=== PATIENT | female | born 1995 | race Caucasian/White ===

== ENCOUNTER 2023-07-18 15:47 | Inpatient (IN) ==
[2023-07-18 17:36] LABS: Basophils # (auto) 0.04 K/uL (0.00-0.20); Basophils % (auto) 0.3 %; Eosinophils # (auto) 0.04 K/uL (0.00-0.50); Eosinophils % (auto) 0.3 %; Hematocrit (blood only) 38.2 % (37.0-47.0); Hemoglobin 13.1 g/dl (12.0-16.0); Immature Granulocytes # (auto) 0.09 K/uL (0.01-0.20); Immature Granulocytes % (auto) 0.8 %; Lymphocytes # (auto) 1.95 K/uL (1.20-3.40); Lymphocytes % (auto) 16.4 %; Mean Corpuscular Hemoglobin 33.6 pg (25.0-34.0); Mean Corpuscular Hgb Conc 34.3 g/dL (32.0-36.0); Mean Corpuscular Volume 97.9 fL (80.0-100.0); Mean Platelet Volume 12.4 fL (9.4-12.4); Monocytes # (auto) 0.75 K/uL (0.11-0.59); Monocytes % (auto) 6.3 %; Neutrophils # (auto) 9.04 K/uL (1.40-6.50); Neutrophils % (auto) 75.9 %; Platelet Count 240 K/uL (130-400); RDW Coefficient of Variation 12.6 % (11.5-14.5); RDW Standard Deviation 45.1 fL (36.4-46.3); White Blood Count 11.91 K/ul (4.8-10.8)
[2023-07-18 17:52] LABS: Albumin Globulin Ratio 1.1 (0.9-2); Albumin Level 3.3 gm/dl (3.4-5.0); BUN Creatinine Ratio 16.4 (10-20); Bilirubin Direct 0.2 mg/dl (0-0.2); Bilirubin,Total 0.4 mg/dl (0.2-1.0); Creatinine Clr Calc Pharmacy 137.1 ml/min; Est GFR (Non-African American) 122.5 ml/min; Globulin 3.1 gm/dl (2.5-4.0); Total Protein 6.4 gm/dl (6.0-8.3)
[2023-07-18 18:08] LABS: Creatinine Urine Random 42.1 mg/dl; Protein Creatinine Ratio Urine 0.4 (0-0.2); Total Protein Urine Random 15.4 mg/dl (0-11.9)
[2023-07-18] MEDS ORDERED: LIDOCAINE 1% LOCAL 20 ML VIAL INFIL PRN (18:25)
[2023-07-18] MEDS ORDERED: MAG SULFATE 4GM BOLUS FROM BAG IV ONE (18:25)
[2023-07-18] MEDS ORDERED: OXYTOCIN 30 UNITS/NSS 30 UNITS/500 ML BAG IV PRN ×2 (18:25)
--- NOTE | 2023-07-18 18:39 | History & Physical Report ---
Date of Service July 18, 2023 Assessment & Plan (1) 38 weeks gestation of : (2) HELLP syndrome: Plan Discussed pt her persistent elevated bps and protein and elevated lfts with point to dx of HELLP. Will admit and plan induction. Hawley placed and will start pitocin. Has not eaten since noon so will allow light meal before starting pitocin/magnesium. SE and risks of magnesium reviewed, needs to have hawley catheter reviewed. Rationale for use reviewed. Will plan serial labs for now. History of Present Illness Chief Complaint: sent from office with elevated bp Primary Care Provider: Filipe Montenegro 28yo at 38+wks ega presents to L&D with elevated bp for further evaluation. Patient called office today after checking her own labs yesterday at [facility] [employer] where she works (no medical order, they were testing a machine), and noting elevated LFTs. She was advised to come to office. BP there elevated >140/90 and advised to come to L&D for more monitoring. No spencer or visual change. No ruq pain or edema. +FM. No rom, vb. +FM. PNC otherwise uncomplicated except for marginal cord insertion and PNL rh pos, ri, gbs neg. While here thus far multiple bps with mild range elevation and then labs here returned with elevated prot/creat ratio and elevated LFTs. Plts were normal and creat 0.6. OBH: g1 GYNH: nl paps, no stds Allergies Allergy/AdvReac Type Severity Reaction Status Date / Time Penicillins Allergy Rash Verified 07/18/23 16:16 Home Medications Medication Instructions Recorded Confirmed Type albuterol sulfate [ProAir HFA] 2 puff inhalation Q6 PRN shortness 09/20/22 07/18/23 History of breath docosahexaenoic acid [ DHA] 1 tab PO DAILY 09/20/22 07/18/23 History famotidine 10 mg tablet (Pepcid AC) 10 mg PO HS 07/18/23 07/18/23 History metoclopramide HCl 5 mg tablet 5 mg PO Q6H PRN nausea 07/18/23 07/18/23 History (Reglan) Patient History Medical History (Updated 07/18/23 @ 18:36 by Amrita Shoemaker MD, FACOG) Varicella vaccination Asthma, exercise induced Surgical History Status post surgery thumb growth plate as result of injury Family History (Updated 12/19/22 @ 15:10 by Marycruz Childs) Mother Breast cancer, Onset Age: 40 Mother at age 41 Grandfather (Maternal) Prostate cancer Grandmother (Paternal) Thyroid disease Denies family history of Ovarian cancer Myocardial infarction Colorectal cancer Social History (Updated 12/19/22 @ 15:12 by Marycruz Childs) Smoking Status: Never smoker Second Hand Exposure: No; Do You Dip or Chew Tobacco: No; Hx Alcohol Use: No Hx Substance Use: No Preferred Language: Italian Channel Turner Required: No Beliefs That Will Affect Care: None marital status: marital status details: Lazaro Wright (30) [phone] Current Living Situation: Spouse Current Living Situation Comment: lives with spouse, dog, cats-spouse changing litter current occupational status: employed current occupation: [employer] How many Children do You have: 0 Feels Safe at Home: Yes Safety Concerns: Feels Safe At This Time Review of Systems as per Subjective / HPI Physical Exam Constitutional: WD/WN, vitals as above Respiratory: normal respiratory effort, lungs clear to auscultation Cardiovascular: Rate/Rhythm: regular rate and regular rhythm Gastrointestinal (Abdomen): soft gravid nt efw 7-8# Musculoskeletal: no edema nontender calves Neurologic: grossly normal DTRs +2 no clonus Psychiatric: A+Ox3, euthymic affect Genitourinary: Manual OB Exam: + cervical dilation (1), + cervical effacement 50% and + station -2 OB Exam Monitor Tracing: + external FHT monitor used, + external uterine monitor used, + category I and + normal FHT variability PROCEDURE: sse cx visualized, grasped on ant lip with ring forcep, hawley through os and balloon inflated with 40cc sterile water. Spec removed, hawley taped to leg. pt nish well. Results & Data Vital Signs (Past 12 Hours) Vital Signs Temp Pulse Resp BP 07/18/23 17:35 100 H 144/86 H 07/18/23 17:21 106 H 142/89 H 07/18/23 16:43 109 H 150/88 H 07/18/23 16:30 107 H 144/88 H 07/18/23 16:29 112 H 140/92 07/18/23 16:14 98.4 F 16 07/18/23 16:02 108 H 143/91 H Coding Level of Care Code None Diagnoses 38 weeks gestation of Z3A.38 HELLP syndrome O14.20
[2023-07-18] MEDS: LACTATED RINGER'S 1,000 ML IV PRN (19:47)
[2023-07-18] MEDS: MAGNESIUM SULFATE / WTR 40 GM/1,000 ML BAG IV SCH (19:51)
[2023-07-18 23:57] LABS: Hematocrit (blood only) 36.7 % (37.0-47.0); Hemoglobin 12.8 g/dl (12.0-16.0); Mean Corpuscular Hemoglobin 33.9 pg (25.0-34.0); Mean Corpuscular Hgb Conc 34.9 g/dL (32.0-36.0); Mean Corpuscular Volume 97.1 fL (80.0-100.0); Mean Platelet Volume 12.3 fL (9.4-12.4); Platelet Count 248 K/uL (130-400); RDW Coefficient of Variation 12.6 % (11.5-14.5); RDW Standard Deviation 44.1 fL (36.4-46.3); Red Blood Count 3.78 M/uL (4.20-5.40); White Blood Count 15.37 K/ul (4.8-10.8)
[2023-07-19] MEDS ORDERED: ACETAMINOPHEN 325 MG TAB PO ONE (00:01)
[2023-07-19 00:03] LABS: Albumin Globulin Ratio 1.1 (0.9-2); Albumin Level 3.2 gm/dl (3.4-5.0); BUN Creatinine Ratio 13.8 (10-20); Bilirubin Direct 0.2 mg/dl (0-0.2); Bilirubin,Total 0.5 mg/dl (0.2-1.0); Calcium 8.2 mg/dl (8.6-10.3); Creatinine Clr Calc Pharmacy 144.2 ml/min; Est GFR (African American) 144.4 ml/min; Est GFR (Non-African American) 124.6 ml/min; Total Protein 6.2 gm/dl (6.0-8.3)
[2023-07-19] MEDS ORDERED: ACETAMINOPHEN 325 MG TAB ONE (00:17)
--- NOTE | 2023-07-19 00:18 | Labor Progress Brief Note ---
Date of Service July 19, 2023 Subjective comfortable pit at 11, not really feeling ctx. has mild spencer. hawley balloon fell out. Assessment & Plan (1) 38 weeks gestation of : (2) HELLP syndrome: (3) Encounter for induction of labor: Plan will see how arom helps labor pattern. lfts noted. will check full labs again about 5am. c/w pit. fhts categ 1. tylenol for spencer, bp ok. good urine out. Admission and Anticipated Discharge Date Admission Date: July 18, 2023 Physical Exam Constitutional: WD/WN, vitals as above Genitourinary: Manual OB Exam: + cervical dilation 5 cm, + cervical effacement 60%, + station -2 and + amniotic fluid (arom) clear OB Exam Monitor Tracing: + external FHT monitor used, + external uterine monitor used (q2-3), + category I and + normal FHT variability Results & Data Vital Signs (Past 12 Hours) Vital Signs Temp Pulse Resp BP 07/18/23 23:59 117 H 137/89 07/18/23 23:30 18 07/18/23 23:29 118 H 153/82 H 07/18/23 22:59 115 H 134/74 07/18/23 22:30 18 07/18/23 22:29 111 H 144/88 H 07/18/23 21:58 123 H 145/86 H 07/18/23 21:30 18 07/18/23 20:58 114 H 149/90 H 07/18/23 20:49 118 H 157/90 H 07/18/23 20:35 18 07/18/23 20:30 113 H 159/82 H 07/18/23 20:21 114 H 148/77 H 07/18/23 20:20 18 07/18/23 20:11 121 H 145/82 H 07/18/23 20:05 18 07/18/23 19:50 98.2 F 18 07/18/23 19:15 110 H 154/91 H 07/18/23 17:35 100 H 144/86 H 07/18/23 17:21 106 H 142/89 H 07/18/23 16:43 109 H 150/88 H 07/18/23 16:30 107 H 144/88 H 07/18/23 16:29 112 H 140/92 07/18/23 16:14 98.4 F 16 07/18/23 16:02 108 H 143/91 H Coding Level of Care Code None Diagnoses 38 weeks gestation of Z3A.38 HELLP syndrome O14.20 Encounter for induction of labor Z34.90
[2023-07-19] MEDS ORDERED: FAMOTIDINE 10 MG TABLET PO STA (01:32)
[2023-07-19] MEDS ORDERED: ePHEDrine sulfate 50 MG/ML AMP ONE (03:59)
[2023-07-19] MEDS ORDERED: fentaNYL citrate PF 100 MCG/2 ML VIAL ONE (03:59)
[2023-07-19] MEDS ORDERED: fentANYL 2 MCG/ML BUPIVacaine 0.125%-NSS 100ML BAG ONE (04:00)
[2023-07-19] MEDS ORDERED: LIDOCAINE 2%/EPINEPHRINE 1:200,000 20 ML PF ONE (04:00)
[2023-07-19] MEDS ORDERED: SODIUM CHLORIDE 0.9% PF INJ 10 ML VIAL ONE (04:00)
[2023-07-19] MEDS ORDERED: BUPIVACAINE 0.25% PF 30 ML VIAL ONE (04:00)
--- NOTE | 2023-07-19 04:06 | Anesthesiology Consultation ---
Date of Service July 19, 2023 Assessment & Plan Chart Review Chart Review: Patient NOT seen in Pre Admission Testing and Acceptable Risk for Labor Epidural Consults Requested none ASA ASA3 Proposed Anesthesia Anesthesia Type: Labor Epidural Risk / Benefits Reviewed With: PT / POA / Parent / Guardian, Accepts Plan and Informed Consent Obtained History Height/Weight Height: 5 ft 2 in Weight: 84.368 kg Allergies Allergy/AdvReac Type Severity Reaction Status Date / Time Penicillins Allergy Rash Verified 07/18/23 16:16 Medications Home Medications Medication Instructions Recorded Confirmed Last Taken albuterol sulfate [ProAir HFA] 2 puff inhalation Q6 PRN shortness 09/20/22 07/18/23 Unknown of breath docosahexaenoic acid [ DHA] 1 tab PO DAILY 09/20/22 07/18/23 07/18/23 famotidine 10 mg tablet (Pepcid AC) 10 mg PO HS 07/18/23 07/18/23 07/17/23 metoclopramide HCl 5 mg tablet 5 mg PO Q6H PRN nausea 07/18/23 07/18/23 Unknown (Reglan) Active Medications Generic Name Dose Route Start Last Admin Trade Name Freq PRN Reason Stop Dose Admin Lactated Ringer's 1,000 mls @ 125 mls/hr 07/18/23 18:25 07/18/23 19:47 Lr IV 07/20/23 18:24 75 mls/hr .Q8H PRN Administration L&D Protocol Protocol Oxytocin 30 units in 500 mls @ 17 mls/hr 07/18/23 18:25 07/19/23 02:30 Pitocin 30 Units/Nss IV 07/20/23 18:24 1.14 units/hr .Q24H PRN 19 mls/hr Labor Induction/Augmentation Titration Protocol 1.02 UNITS/HR Magnesium Sulfate 40 gm in 1,000 mls @ 50 mls/hr 07/18/23 18:30 07/18/23 23:33 Magnesium Sulfate / Wtr IV 08/17/23 18:29 50 mls/hr .Q20H [facility] Infusion NPO Date Last Intake of Fluids: 07/19/23 Time Last Intake of Fluids: 03:00 Date Last Intake of Solids: 07/18/23 Time Last Intake of Solids: 19:00 Past Medical History Medical History Varicella vaccination Asthma, exercise induced Exercise / Class Metabolic Activity 1 > 8 Run/Swim/Ski/Tennis Past Family History Family History Mother Breast cancer, Onset Age: 40 Mother at age 41 Grandfather (Maternal) Prostate cancer Grandmother (Paternal) Thyroid disease Denies family history of Ovarian cancer Myocardial infarction Colorectal cancer Past Surgical History Surgical History Status post surgery thumb growth plate as result of injury Past Anesthesia History No Hx of Anesthesia Complications and No Family Hx of Anesthesia Complications History of PONV No Hx of Motion Sickness and History of PONV Social History Smoking Status: Never smoker Do You Dip or Chew Tobacco: No Hx Alcohol Use: No Hx Substance Use: No substance use type: does not use Review of Systems ROS Unobtainable: All systems reviewed & are unremarkable except as noted in HPI & below Physical Exam Vital Signs Last Vital Signs Temp 36.6 C 07/19/23 01:31 Pulse 118 H 07/19/23 03:38 Resp 18 07/19/23 03:30 BP 145/83 H 07/19/23 03:38 ENMT Mouth: no TMJ abnormality Thyromental Distance: > or= 3.5 Finger Breadths Mallampati Class: II Neck normal visual inspection and trachea midline; neck extension not limited Respiratory normal respiratory effort Auscultation: lungs clear to auscultation bilaterally Cardiovascular Rate/Rhythm: regular rate and regular rhythm Heart Sounds: no murmur Musculoskeletal Spine: normal cervical ROM Extremities: full ROM of extremities Neurologic moves all extremities Psychiatric Orientation: alert and oriented x 3 Testing Laboratory Results 07/18/23 23:31 07/18/23 23:31
[2023-07-19] MEDS: LACTATED RINGER'S 1,000 ML IV PRN ×2 (04:18→14:42)
[2023-07-19] MEDS ORDERED: LIDOCAINE 2% MPF LOCAL 5 ML VIAL EPI PRN (04:46)
[2023-07-19] MEDS ORDERED: NALBUPHINE HCL 5 MG in SYRINGE 0 ML IV PRN (04:46)
[2023-07-19] MEDS ORDERED: ROPIVACAINE 0.5% PF 5 MG/ML 20 ML VIAL EPI PRN (04:46)
[2023-07-19] MEDS ORDERED: NALOXONE HCL 0.4 MG/1 ML VIAL/CARP IV PRN (04:46)
[2023-07-19] MEDS ORDERED: NALOXONE HCL 1 MG in SODIUM CHLORIDE 0.9% 1,000 ML IV PRN (04:46)
[2023-07-19] MEDS ORDERED: LIDOCAINE 2%/EPINEPHRINE 1:200,000 20 ML PF EPI STA (04:46)
[2023-07-19] MEDS ORDERED: fentaNYL citrate PF 100 MCG/2 ML VIAL EPI STA (04:46)
[2023-07-19] MEDS ORDERED: ePHEDrine sulfate 50 MG/ML AMP IV PRN (04:46)
[2023-07-19] MEDS ORDERED: SODIUM CHLORIDE 0.9% PF INJ 10 ML VIAL EPI STA (04:46)
[2023-07-19] MEDS ORDERED: diphenhydrAMINE 50 MG/ML VIAL IV PRN (04:46)
[2023-07-19] MEDS ORDERED: BUPIVACAINE 0.25% PF 30 ML VIAL EPI STA (04:46)
[2023-07-19 06:20] LABS: Hematocrit (blood only) 37.1 % (37.0-47.0); Hemoglobin 12.5 g/dl (12.0-16.0); Mean Corpuscular Hemoglobin 33.3 pg (25.0-34.0); Mean Corpuscular Hgb Conc 33.7 g/dL (32.0-36.0); Mean Corpuscular Volume 98.9 fL (80.0-100.0); Mean Platelet Volume 12.5 fL (9.4-12.4); Platelet Count 237 K/uL (130-400); RDW Coefficient of Variation 12.5 % (11.5-14.5); RDW Standard Deviation 45.1 fL (36.4-46.3); Red Blood Count 3.75 M/uL (4.20-5.40); White Blood Count 18.52 K/ul (4.8-10.8)
[2023-07-19 06:38] LABS: Albumin Globulin Ratio 1.2 (0.9-2); Albumin Level 3.3 gm/dl (3.4-5.0); BUN Creatinine Ratio 10.5 (10-20); Bilirubin Direct 0.2 mg/dl (0-0.2); Bilirubin,Total 0.6 mg/dl (0.2-1.0); Calcium 7.8 mg/dl (8.6-10.3); Creatinine Clr Calc Pharmacy 146.7 ml/min; Est GFR (African American) 145.2 ml/min; Est GFR (Non-African American) 125.3 ml/min; Globulin 2.8 gm/dl (2.5-4.0); Total Protein 6.1 gm/dl (6.0-8.3)
[2023-07-19] MEDS ORDERED: ONDANSETRON INJ 2 MG/ML 2 ML VIAL ONE (07:05)
[2023-07-19] MEDS ORDERED: ONDANSETRON INJ 2 MG/ML 2 ML VIAL IV PRN (08:23)
--- NOTE | 2023-07-19 09:33 | Anesthesia Procedure Note ---
Date of Service July 19, 2023 Anesthesia Epidural Re-Dose Vital Signs Temp Pulse Resp BP Pulse Ox 98.2 F 109 H 20 175/83 H 97 07/19/23 07:15 07/19/23 09:27 07/19/23 07:15 07/19/23 09:26 07/19/23 09:27 Notes Pain Intensity: 0 Dilatation (cm): 8.0 Effacement (%): 100 Called by nursing to evaluate epidural as the patient is having increased pain. The epidural was re-dosed with the following medications (all medications via epidural route) after negative aspiration of the epidural catheter for CSF/HEME. 0.125% Bupivacaine (8ml) with 100 mcg Fentanyl After Epidural Re-Dose Mental Status: alert / awake / arousable Pain: improving with treatment Airway Patency, RR, SpO2: stable & adequate BP & HR: stable & adequate
[2023-07-19] MEDS: BUPIVACAINE 0.25% PF 30 ML VIAL EPI PRN ×2 (09:37→12:14)
[2023-07-19] MEDS: fentaNYL citrate PF 100 MCG/2 ML VIAL EPI PRN ×2 (09:38→12:14)
[2023-07-19] MEDS: SODIUM CHLORIDE 0.9% PF INJ 10 ML VIAL EPI PRN ×2 (09:38→12:14)
[2023-07-19] MEDS: fentANYL 2 MCG/ML BUPIVacaine 0.125%-NSS 100ML BAG EPI PRN ×2 (11:23→15:53)
[2023-07-19] MEDS ORDERED: NURSING L&D Epidural Breakthrough Pain Update ONE (11:25)
[2023-07-19 11:32] LABS: Hematocrit (blood only) 37.7 % (37.0-47.0); Mean Corpuscular Hemoglobin 33.9 pg (25.0-34.0); Mean Corpuscular Hgb Conc 34.5 g/dL (32.0-36.0); Mean Corpuscular Volume 98.4 fL (80.0-100.0); Mean Platelet Volume 12.2 fL (9.4-12.4); Platelet Count 239 K/uL (130-400); RDW Coefficient of Variation 12.9 % (11.5-14.5); Red Blood Count 3.83 M/uL (4.20-5.40); White Blood Count 19.63 K/ul (4.8-10.8)
[2023-07-19 11:47] LABS: Albumin Globulin Ratio 1.1 (0.9-2); Albumin Level 3.2 gm/dl (3.4-5.0); Bilirubin,Total 0.7 mg/dl (0.2-1.0); Calcium 7.6 mg/dl (8.6-10.3); Creatinine Clr Calc Pharmacy 139.4 ml/min; Est GFR (African American) 142.8 ml/min; Est GFR (Non-African American) 123.2 ml/min; Globulin 2.9 gm/dl (2.5-4.0); Potassium 3.9 mmol/L (3.5-5.1); Total Protein 6.1 gm/dl (6.0-8.3)
--- NOTE | 2023-07-19 12:22 | Anesthesia Procedure Note ---
Date of Service July 19, 2023 Anesthesia Epidural Re-Dose Vital Signs Temp Pulse Resp BP Pulse Ox 98.1 F 102 H 20 151/99 H 94 07/19/23 09:30 07/19/23 12:17 07/19/23 09:30 07/19/23 12:13 07/19/23 12:17 Notes Pain Intensity: 4 Dilatation (cm): 9.5 Effacement (%): 100 Called by nursing to evaluate epidural as the patient is having increased pain. The epidural was re-dosed with the following medications (all medications via epidural route) after negative aspiration of the epidural catheter for CSF/HEME. 0.125% Bupivacaine (8ml) with 100 mcg Fentanyl After Epidural Re-Dose Mental Status: alert / awake / arousable Pain: improving with treatment Airway Patency, RR, SpO2: stable & adequate BP & HR: stable & adequate
[2023-07-19] MEDS: MAGNESIUM SULFATE / WTR 40 GM/1,000 ML BAG IV SCH ×2 (12:45→19:29)
[2023-07-19] MEDS ORDERED: FAMOTIDINE 10 MG in SYRINGE 3 ML IV ONE (15:45)
[2023-07-19] MEDS ORDERED: DIPHTHERIA/TETANUS/PERTUSSIS Vaccine (Tdap, Age 7+yrs) 0.5mL SYR/VL IM ONE (17:12)
[2023-07-19] MEDS ORDERED: OXYTOCIN 30 UNITS/NSS 30 UNITS/500 ML BAG IV PRN (17:12)
[2023-07-19] MEDS ORDERED: ACETAMINOPHEN 325 MG TAB PO PRN (17:12)
[2023-07-19] MEDS ORDERED: bisacodyL 10 MG SUPP PR PRN (17:12)
[2023-07-19] MEDS ORDERED: HYDROCORTISONE ACETATE 25 MG SUPP PR PRN (17:12)
[2023-07-19] MEDS ORDERED: BENZOCAINE 20% SPRY 85 APPLN/85 GM CAN EXT PRN (17:12)
--- NOTE | 2023-07-19 17:16 | Delivery Summary ---
Vaginal Delivery Summary Date of Service July 19, 2023 Vaginal Delivery Summary [facility] PREOPERATIVE DIAGNOSIS: 1. Single intrauterine at 38 3/7 2. HELLP syndrome 3. Marginal cord insertion POSTOPERATIVE DIAGNOSIS: 1. Single intrauterine at 38 3/7 2. HELLP syndrome 3. Marginal cord insertion 4. Delivered PROCEDURE: 1. Normal spontaneous vaginal delivery. SURGEON: Maddie Escalona MD ANESTHESIA: Epidural. ESTIMATED BLOOD LOSS: 300 mL FLUIDS: Continuous LR. URINE OUTPUT: None. COMPLICATIONS: None. CONDITION: Stable. INDICATIONS: 28 yo G1 contacted office due to findings of elevated liver enzymes on bloodwork that was done for machine testing. She was brought to the office where bp check was performed and slightly elevated so sent to L&D for further monitoring. BPs were persistently elevated and labs suggestive of HELLP so recommended for induction. Magnesium was started and serial labs obtained. Induction was begun with hawley balloon and pit. Following hawley expulsion, pit was titrated up and she underwent arom. She continued to progress to complete and desired to push. FINDINGS: A viable female infant, weight pending with Apgars of 3 and 9 at 1 and 5 minutes respectively. SPECIMEN: Cord blood, cord gases OPERATIVE REPORT: The patient progressed to 10 cm, 100% effaced and +2 station, pushed over intact perineum with anesthesia to deliver a viable female infant, weight and Apgars as above. Head of delivered in LELIA position. No nuchal cord was present. body was noted to be transverse so posterior shoulder rotated and then body and shoulders were delivered without difficulty. was delivered to maternal abdomen and nursing staff. Delayed cord clamping deferred due to not being immediately vigorous. Cord was clamped and cut and baby taken to nursery staff. Cord segment for gases and blood was obtained. Placenta delivered spontaneously intact. IV oxytocin and fundal massage were given for excellent hemostasis. Vagina, cervix, perineum, and placenta were inspected. A vaginal laceration was noted and repaired using 3-0 vicryl. There was excellent hemostasis. Sponge and needle counts correct x2. No sponges were left behind. Mother and stable in immediate period. [facility] [place] [facility] Vaginal Delivery Charge Vaginal Delivery Codes: 52128 global code for the antepartum, delivery, and post- Delivery Type Details: [facility]
[2023-07-19 17:20] LABS: Base Excess Cord Arterial Bld -3.7 mEq/L (-9-1.8); CO2 Cord Arterial Blood 45 mmHg (39.1-73.5); HCO3 Cord Arterial Blood 23 mmol/L (19.7-28.5); PO2 Cord Arterial Blood < 20 mmHg (4.1-31.7); pH Cord Arterial Blood 7.31 (7.1-7.38)
--- NOTE | 2023-07-19 18:02 | Anesthesia Procedure Note ---
Date of Service July 19, 2023 Anesthesia Post Epidural Note Vital Signs Vital Signs: Temp Pulse Resp BP Pulse Ox 98.2 F 93 H 18 116/75 99 07/19/23 13:58 07/19/23 17:58 07/19/23 17:13 07/19/23 17:58 07/19/23 16:58 Pain Intensity Bilateral Abdomen: Pain Intensity: 0 Notes Mental Status: alert / awake / arousable and participated in evaluation Nausea / Vomiting: adequately controlled Pain: adequately controlled Airway Patency, RR, SpO2: stable & adequate BP & HR: stable & adequate Hydration State: stable & adequate Neuraxial Anesthesia: was administered and sensory block is resolving Anesthetic Complications: no major complications apparent and Pt Satisfied with anesthetic care Epidural: Removed without complications and With tip intact
[2023-07-19] MEDS: IBUPROFEN 600 MG TAB PO PRN ×2 (19:12→23:00)
[2023-07-19] MEDS: DOCUSATE SODIUM 100 MG CAP PO SCH (21:31)
[2023-07-19 22:55] LABS: Hematocrit (blood only) 32.1 % (37.0-47.0); Hemoglobin 11.1 g/dl (12.0-16.0); Mean Corpuscular Hemoglobin 33.9 pg (25.0-34.0); Mean Corpuscular Hgb Conc 34.6 g/dL (32.0-36.0); Mean Corpuscular Volume 98.2 fL (80.0-100.0); Mean Platelet Volume 12.1 fL (9.4-12.4); Platelet Count 236 K/uL (130-400); RDW Coefficient of Variation 12.7 % (11.5-14.5); RDW Standard Deviation 45.7 fL (36.4-46.3); Red Blood Count 3.27 M/uL (4.20-5.40); White Blood Count 20.37 K/ul (4.8-10.8)
[2023-07-19 23:10] LABS: Albumin Globulin Ratio 1.1 (0.9-2); Albumin Level 2.7 gm/dl (3.4-5.0); BUN Creatinine Ratio 9.5 (10-20); Bilirubin,Total 0.8 mg/dl (0.2-1.0); Calcium 6.8 mg/dl (8.6-10.3); Creatinine Clr Calc Pharmacy 132.7 ml/min; Est GFR (African American) 140.5 ml/min; Est GFR (Non-African American) 121.2 ml/min; Globulin 2.4 gm/dl (2.5-4.0); Magnesium Therapeutic L&D Only 5.4 mg/dL (4.0-8.0); Potassium 4.1 mmol/L (3.5-5.1); Total Protein 5.1 gm/dl (6.0-8.3)
[2023-07-20] MEDS: IBUPROFEN 600 MG TAB PO PRN ×3 (03:13→17:42)
[2023-07-20] MEDS ORDERED: LACTATED RINGER'S 1,000 ML IV SCH (04:30)
--- NOTE | 2023-07-20 05:02 | Obstetrical Progress Note ---
Date of Service <Tj Esposito - Last Filed: 07/20/23 06:50> July 20, 2023 Assessment & Plan <Tj Esposito - Last Filed: 07/20/23 06:50> (1) HELLP syndrome: (2) care following vaginal delivery: Plan 28 year old , PPD#1: Tolerating clear liquids, hawley catheter, limited ambulation at this time due to Mag drip Vitals reviewed, overnight BPs consistently WNL Labs improving Mag drip Pain well controlled with Motrin Otherwise routine care - OOB, ambulation, diet progression as tolerated Will have 6 week follow up with Dr. Escalona <Maddie Escalona MD - Last Filed: 07/20/23 08:01> (1) HELLP syndrome: (2) care following vaginal delivery: Subjective <Tj Esposito - Last Filed: 07/20/23 06:50> Ambulation: limited ambulation Voiding: hawley catheter in place Passing Gas:: Yes Diet Tolerance:: clear liquids Lochia:: Moderate Feeding Type:: breast feeding Pain well controlled with Motrin Review of Systems -Denies fever or chills -Denies dyspnea, chest pain, or palpitations -Denies RUQ abdominal pain -Denies dysuria -Denies headache or changes in vision Physical Exam <Tj Esposito - Last Filed: 07/20/23 06:50> General: Alert and oriented. No acute distress Cardiac: Regular rate and rhythm, no murmurs appreciated Respiratory: Lungs clear to auscultation bilaterally, No increased work of breathing Abdominal: Soft, non-tender, non-distended. Bowel sounds present. Uterus: Uterine fundus firm, palpable below umbilicus Extremities: No lower extremity edema appreciated, SCDs in place Results & Data <Tj Esposito - Last Filed: 07/20/23 06:50> Vital Signs (Past 12 Hours) Vital Signs Temp Pulse Resp BP O2 Del Method 07/20/23 04:15 16 07/20/23 04:13 75 100/54 L 07/20/23 03:12 36.6 C 77 18 117/73 07/20/23 03:10 18 07/20/23 02:13 18 07/20/23 02:11 85 112/65 07/20/23 01:09 16 07/20/23 01:07 83 120/57 L 07/20/23 00:07 16 07/20/23 00:03 76 118/59 L 07/19/23 23:03 90 146/65 H 07/19/23 23:00 Room Air 07/19/23 23:00 36.9 C 20 07/19/23 23:00 20 07/19/23 22:48 97 H 136/70 07/19/23 22:03 97 H 132/63 07/19/23 21:03 93 H 135/82 07/19/23 21:00 37.0 C 20 07/19/23 19:40 97 H 134/78 07/19/23 19:15 18 07/19/23 19:04 95 H 157/89 H 07/19/23 18:43 107 H 125/75 07/19/23 18:28 103 H 125/76 07/19/23 18:13 95 H 124/76 07/19/23 17:58 93 H 116/75 07/19/23 17:43 104 H 140/81 07/19/23 17:28 86 137/81 07/19/23 17:13 18 07/19/23 17:13 96 H 142/89 H Supervising Physician <Maddie Escalona MD - Last Filed: 07/20/23 08:01> Co-Signing Physician Notes Resident Physician Supervision Note: I interviewed and examined the patient. Discussed with Dr. Esposito and agree with findings and plan as documented in the note. Any exceptions or clarifications are listed here: PP1 s/p c/b HELLP, currently on mag. VSS, exam benign and wnl. UOP adequate via hawley. LFTs downtrending. Continue mag x 24 hrs from delivery Documented By: Maddie Escalona MD Resident Activity Tracking <Tj Esposito DO - Last Filed: 07/20/23 06:50> Resident Involvement: Resident Care Provided Care Provided: OB Delivery
[2023-07-20 06:24] LABS: Hematocrit (blood only) 30.5 % (37.0-47.0); Hemoglobin 10.6 g/dl (12.0-16.0); Mean Corpuscular Hemoglobin 34.3 pg (25.0-34.0); Mean Corpuscular Hgb Conc 34.8 g/dL (32.0-36.0); Mean Corpuscular Volume 98.7 fL (80.0-100.0); Mean Platelet Volume 12.3 fL (9.4-12.4); Platelet Count 212 K/uL (130-400); RDW Coefficient of Variation 12.9 % (11.5-14.5); RDW Standard Deviation 45.5 fL (36.4-46.3); Red Blood Count 3.09 M/uL (4.20-5.40); White Blood Count 16.85 K/ul (4.8-10.8)
[2023-07-20 06:34] LABS: Albumin Level 2.7 gm/dl (3.4-5.0); Bilirubin,Total 0.8 mg/dl (0.2-1.0); Calcium 6.7 mg/dl (8.6-10.3); Potassium 4.2 mmol/L (3.5-5.1)
[2023-07-20 06:41] LABS: Albumin Globulin Ratio 1.2 (0.9-2); BUN Creatinine Ratio 7.8 (10-20); Creatinine Clr Calc Pharmacy 130.6 ml/min; Est GFR (African American) 139.8 ml/min; Est GFR (Non-African American) 120.6 ml/min; Globulin 2.2 gm/dl (2.5-4.0); Total Protein 4.9 gm/dl (6.0-8.3)
[2023-07-20] MEDS: PRENATAL VITAMIN 1 TAB PO SCH (08:02)
[2023-07-20] MEDS: DOCUSATE SODIUM 100 MG CAP PO SCH ×2 (08:02→20:47)
[2023-07-20] MEDS: MAGNESIUM SULFATE / WTR 40 GM/1,000 ML BAG IV SCH (08:02)
[2023-07-20 12:21] LABS: Hematocrit (blood only) 28.9 % (37.0-47.0); Hemoglobin 9.9 g/dl (12.0-16.0); Mean Corpuscular Hgb Conc 34.3 g/dL (32.0-36.0); Mean Corpuscular Volume 99.3 fL (80.0-100.0); Platelet Count 227 K/uL (130-400); RDW Coefficient of Variation 12.9 % (11.5-14.5); RDW Standard Deviation 46.2 fL (36.4-46.3); Red Blood Count 2.91 M/uL (4.20-5.40); White Blood Count 15.52 K/ul (4.8-10.8)
[2023-07-20 12:39] LABS: Albumin Globulin Ratio 1.1 (0.9-2); Albumin Level 2.6 gm/dl (3.4-5.0); BUN Creatinine Ratio 7.7 (10-20); Bilirubin,Total 0.5 mg/dl (0.2-1.0); Calcium 6.6 mg/dl (8.6-10.3); Creatinine Clr Calc Pharmacy 128.6 ml/min; Est GFR (African American) 139.1 ml/min; Globulin 2.3 gm/dl (2.5-4.0); Magnesium Therapeutic L&D Only 5.4 mg/dL (4.0-8.0); Total Protein 4.9 gm/dl (6.0-8.3)
[2023-07-20] MEDS ORDERED: bisacodyL 5 MG TABEC PO SCH (20:00)
[2023-07-20] MEDS ORDERED: FAMOTIDINE 10 MG TABLET PO SCH (21:00)
[2023-07-21] MEDS: IBUPROFEN 600 MG TAB PO PRN ×2 (00:13→08:02)
[2023-07-21 06:53] LABS: Hematocrit (blood only) 30.4 % (37.0-47.0); Hemoglobin 9.9 g/dl (12.0-16.0); Mean Corpuscular Hemoglobin 33.3 pg (25.0-34.0); Mean Corpuscular Hgb Conc 32.6 g/dL (32.0-36.0); Mean Corpuscular Volume 102.4 fL (80.0-100.0); Mean Platelet Volume 11.8 fL (9.4-12.4); Platelet Count 246 K/uL (130-400); RDW Coefficient of Variation 13.2 % (11.5-14.5); RDW Standard Deviation 48.5 fL (36.4-46.3); Red Blood Count 2.97 M/uL (4.20-5.40); White Blood Count 11.83 K/ul (4.8-10.8)
[2023-07-21 07:09] LABS: Albumin Globulin Ratio 1.1 (0.9-2); Albumin Level 2.8 gm/dl (3.4-5.0); BUN Creatinine Ratio 16.1 (10-20); Bilirubin,Total 0.5 mg/dl (0.2-1.0); Calcium 8.1 mg/dl (8.6-10.3); Creatinine Clr Calc Pharmacy 134.9 ml/min; Est GFR (African American) 141.2 ml/min; Est GFR (Non-African American) 121.9 ml/min; Globulin 2.5 gm/dl (2.5-4.0); Potassium 4.5 mmol/L (3.5-5.1); Total Protein 5.3 gm/dl (6.0-8.3)
[2023-07-21] MEDS: PRENATAL VITAMIN 1 TAB PO SCH (08:02)
[2023-07-21] MEDS: DOCUSATE SODIUM 100 MG CAP PO SCH (08:02)
--- NOTE | 2023-07-21 08:50 | Obstetrical Progress Note ---
Date of Service July 21, 2023 Assessment & Plan (1) care following vaginal delivery: PPD#2 doing well. Desires discharge home. LFTs are trending towards normal. Will plan for repeat CBC/CMP in 1 week with BP check in office. Reviewed DC instructions. (2) HELLP syndrome: Subjective Ambulation: ambulating normally Voiding: no voiding problems Diet Tolerance:: regular diet Lochia:: Moderate Review of Systems All systems reviewed & are unremarkable except as noted in HPI & below Physical Exam Constitutional WD/WN, vitals as above no acute distress Respiratory normal respiratory effort Cardiovascular Rate/Rhythm: regular rate and regular rhythm Gastrointestinal (Abdomen) Inspection/Auscultation: abdomen normal to inspection; abdomen not distended Percussion/Palpation: abdomen soft Genitourinary OB Exam Abdomen: + fundal height Fundus: + firm; not tender Results & Data Vital Signs (Past 12 Hours) Vital Signs Temp Pulse Resp BP Pulse Ox O2 Del Method 07/21/23 03:10 121/64 07/21/23 00:05 36.8 C 80 18 118/79 94 Room Air
== END 2023-07-21 15:00 | disposition home health service (06) | DRG 807 ==
LOC: OPB 15:47 → 4S1 15:49 → 4E2 07-20 17:00